=== PATIENT | male | born 1985 | race Two or more races ===

== ENCOUNTER 2016-08-16 20:43 | Emergency (ER) | payer MEDICAID, OTHER ==
[2016-08-16] MEDS ORDERED: METHOCARBAMOL 750 MG TABLET ONE (21:07)
[2016-08-16] MEDS ORDERED: KETOROLAC TROMETHAMINE 30 MG/ML 1 ML VIAL ONE (21:07)
== END 2016-08-16 21:42 | disposition home or self-care (01) ==
LOC: ED 20:43
DX: M54.5 Low back pain (principal); X50.0XXA Overexertion from strenuous movement or load, initial encounter; Y93.66 Activity, soccer; Y92.322 Soccer field as the place of occurrence of the external cause
CPT/HCPCS: 99283 ×2; 96372; A9270; J1885